=== PATIENT | female | born 1980 ===

== ENCOUNTER 2016-10-09 08:59 | Emergency (ER) | payer MEDICAID, OTHER ==
[2016-10-09 09:28] VITALS: BMI 32.8
[2016-10-09 09:30] VITALS: BP 124/79; PULSE 100; RESP 16; TEMP 99.5; O2SAT 99
--- NOTE | 2016-10-09 09:57 | ED PDOC ---
Arrival/HPI - General Chief Complaint: ENT Problem Time Seen by Provider: 10/09/16 09:54 Historian: Patient - History of Present Illness Narrative History of Present Illness (Text): 10/09/16 09:55 This 35 yo female presents to this ED c/o sore throat x 3 days. Patient stated it is painful to swallow. Patient noted subjective fever last night. Denies n/ v, sob, cp, wheezing, abdominal pain, or abnormal gait. Time/Duration: Other (3 days) Context: Home Past Medical History - Provider Review Nursing Documentation Reviewed: Yes - Psychiatric Hx Substance Use: No Family/Social History - Physician Review Nursing Documentation Reviewed: Yes Family/Social History: No Known Family HX Smoking Status: Never Smoked Hx Alcohol Use: No Hx Substance Use: No Allergies/Home Meds Allergies/Adverse Reactions: Allergies No Known Allergies Allergy (Verified 10/09/16 09:30) Review of Systems - Review of Systems Constitutional: Normal. absent: Fatigue, Weight Change, Fevers Eyes: Normal ENT: Sore Throat Respiratory: Normal. absent: SOB, Cough, Wheezing Cardiovascular: Normal. absent: Chest Pain Gastrointestinal: Normal. absent: Abdominal Pain, Constipation, Diarrhea, Nausea, Vomiting Genitourinary Female: Normal. absent: Dysuria, Frequency, Hematuria, Vaginal Bleeding Musculoskeletal: Normal. absent: Arthralgias, Back Pain, Neck Pain, Joint Swelling, Myalgias Skin: Normal Neurological: Normal. absent: Headache, Dizziness, Focal Weakness, Gait Changes , Speech Changes Endocrine: Normal Hemo/Lymphatic: Normal Psychiatric: Normal Physical Exam Vital Signs Temp Pulse Resp BP Pulse Ox 10/09/16 09:28 99.5 F 100 H 16 124/79 99 Temperature: Afebrile Blood Pressure: Normal Pulse: Regular Respiratory Rate: Normal Appearance: Positive for: Well-Appearing, Non-Toxic, Comfortable Pain Distress: None Mental Status: Positive for: Alert and Oriented X 3 - Systems Exam Head: Present: Atraumatic, Normocephalic Pupils: Present: PERRL Extroacular Muscles: Present: EOMI Conjunctiva: Present: Normal Mouth: Present: Moist Mucous Membranes Pharnyx: Present: ERYTHEMA, EXUDATE, TONSILS ENLARGED. No: Peritonsilar Swelling, Uvular Deviation, Muffled/Hoarse Voice, Strider, Soft Palate/Uvular Edema Nose (External): Present: Atraumatic Nose (Internal): Present: Normal Inspection Neck: Present: Normal Range of Motion, Lymphadenopathy. No: Meningeal Signs Respiratory/Chest: Present: Clear to Auscultation, Good Air Exchange. No: Respiratory Distress, Accessory Muscle Use, Wheezes, Decreased Breath Sounds, Rales, Retracting, Rhonchi Cardiovascular: Present: Regular Rate and Rhythm, Normal S1, S2. No: Murmurs Abdomen: Present: Normal Bowel Sounds. No: Tenderness, Distention, Peritoneal Signs Back: Present: Normal Inspection. No: CVA Tenderness Upper Extremity: Present: Normal Inspection. No: Cyanosis, Edema Lower Extremity: Present: Normal Inspection. No: Edema Neurological: Present: GCS=15, CN II-XII Intact, Speech Normal Skin: Present: Warm, Dry, Normal Color. No: Rashes Psychiatric: Present: Alert, Oriented x 3, Normal Insight, Normal Concentration Medical Decision Making ED Course and Treatment: 10/09/16 10:08 Re-evaluation. Patient feels better. Discussed results and plan with patient who expresses understanding. All questions answered and there is agreement with the plan to discharge home with instructions. Patient stable for discharge. Return if symptoms persist or worsen. Re-evaluation Time: 10:08 Reassessment Condition: Re-examined, Improved - Medication Orders Current Medication Orders: Discontinued Medications Amoxicillin/Clavulanate Potassium (Augmentin 875 Mg-125 Mg Tab) 1 tab PO STAT STA PRN Reason: Protocol Stop: 10/09/16 10:04 Last Admin: 10/09/16 10:26 Dose: 1 TAB Ketorolac Tromethamine (Toradol) 30 mg IM STAT STA Stop: 10/09/16 10:03 Last Admin: 10/09/16 10:30 Dose: 30 MG IM Administration Charges Document 10/09/16 10:30 SALAZAR (Rec: 10/09/16 10:30 SALAZAR [id number]) Injection Site MAR Injection Site Left Deltoid Charges for Administration # of IM Administrations 1 Prednisone (Prednisone Tab) 60 mg PO STAT ONE Stop: 10/09/16 10:04 Last Admin: 10/09/16 10:30 Dose: 60 MG Disposition/Present on Arrival - Present on Arrival Any Indicators Present on Arrival: No History of DVT/PE: No History of Uncontrolled Diabetes: No Urinary Catheter: No History of Decub. Ulcer: No History Surgical Site Infection Following: None - Disposition Have Diagnosis and Disposition been Completed?: Yes Diagnosis: Pharyngitis Disposition: HOME/ ROUTINE Disposition Time: 10:08 Patient Plan: Discharge Condition: GOOD Discharge Instructions (ExitCare): Pharyngitis (ED) Additional Instructions: Call private doctor for follow up visit in 1-2 days. Take medication as instructed. Return to emergency if symptoms worsen. Prescriptions: Amoxicillin/Clavulanate [Augmentin 875 MG-125 MG] 1 tab PO BID #20 tab Prednisone [Deltasone] 60 mg PO DAILY #12 tablet Promethazine/Codeine [Codeine/Promethazine 10 MG/5 Ml-6.25 MG/5 Ml] 5 ml PO Q4H PRN #120 ml PRN Reason: Cough Referrals: [facility] [Outside] - Follow up with primary Forms: WORK NOTE
[2016-10-09] MEDS ORDERED: Amoxicillin-Clav 875-125 mg Tab PO STA (10:03)
== END 2016-10-09 10:49 | disposition home or self-care (01) ==
LOC: ED 08:59
DX: J02.9 Acute pharyngitis, unspecified (principal)
CPT/HCPCS: 96372; 99282; J1885

== ENCOUNTER 2017-10-21 10:07 | Emergency (ER) | payer MEDICAID, OTHER ==
[2017-10-21 10:07] VITALS: BMI 32.8
[2017-10-21 10:41] VITALS: TEMP 98.7; O2SAT 100
--- NOTE | 2017-10-21 11:19 | ED PDOC ---
Arrival/HPI - General Chief Complaint: Breast Problem Time Seen by Provider: 10/21/17 11:08 Historian: Patient - History of Present Illness Narrative History of Present Illness (Text): 10/21/17 11:27 A 36 year old female, with no significant past medical history, presents to the emergency department complaining of right breast pain for 2 months. Patient reports today pain has become worse and notes also feeling a lump on breast. Patient denies any inflammation or any other complaints. No PMD Time/Duration: > month (2 months) Symptom Onset: Gradual Symptom Course: Worsening Past Medical History - Provider Review Nursing Documentation Reviewed: Yes - Psychiatric Hx Psychophysiologic Disorder: No Hx Substance Use: No Family/Social History - Physician Review Nursing Documentation Reviewed: Yes Family/Social History: No Known Family HX Smoking Status: Never Smoked Hx Alcohol Use: No Hx Substance Use: No Allergies/Home Meds Allergies/Adverse Reactions: Allergies No Known Allergies Allergy (Verified 10/21/17 10:21) Review of Systems - Physician Review All systems were reviewed & negative as marked: Yes - Review of Systems Musculoskeletal: Other (right breast pain) Skin: absent: Other (no inflammation to breast) Physical Exam Vital Signs Reviewed: Yes Vital Signs Temp Pulse Resp BP Pulse Ox 10/21/17 10:22 98.7 F 61 16 111/79 100 Temperature: Afebrile Blood Pressure: Normal Pulse: Irregular Respiratory Rate: Normal Appearance: Positive for: Well-Appearing Pain Distress: None Mental Status: Positive for: Alert and Oriented X 3 - Systems Exam Respiratory/Chest: Present: Clear to Auscultation, Good Air Exchange. No: Respiratory Distress, Accessory Muscle Use Cardiovascular: Present: Irregular Rhythm Abdomen: No: Tenderness, Distention, Peritoneal Signs Breast/Axillary: Present: Masses (palpable mass (2 cm in diameter size at 1 o' clock area) 6 cm away from nipple, feel indurated, well dircumsized, no flutuation), Symmetrical. No: Erythema Neurological: Present: GCS=15, CN II-XII Intact, Speech Normal Skin: Present: Warm, Dry, Normal Color. No: Rashes Psychiatric: Present: Alert, Oriented x 3, Normal Insight, Normal Concentration Medical Decision Making ED Course and Treatment: 10/21/17 11:30 Impression: 36 year old female with right breast pain and palpable mass. Physical exam shows 2 cm palpable mass (6 cm away from nipple area) located in 1 o'clock area of breast. Differential Diagnosis included but are not limited to: Cyst vs. Abscess Plan: -- Referral to TEACHER LEARNING DISABLED -- Reassess and disposition Progress Notes: 10/21/17 11:33 Discharge papers handed to nurse. - Scribe Statement The provider has reviewed the documentation as recorded by the Yrnibjosé miguel Rodriguez Provider Scribe Attestation: All medical record entries made by the Scribe were at my direction and personally dictated by me. I have reviewed the chart and agree that the record accurately reflects my personal performance of the history, physical exam, medical decision making, and the department course for this patient. I have also personally directed, reviewed, and agree with the discharge instructions and disposition. Disposition/Present on Arrival - Present on Arrival Any Indicators Present on Arrival: No History of DVT/PE: No History of Uncontrolled Diabetes: No Urinary Catheter: No History of Decub. Ulcer: No History Surgical Site Infection Following: None - Disposition Have Diagnosis and Disposition been Completed?: Yes Diagnosis: Breast mass, right Disposition: HOME/ ROUTINE Disposition Time: 11:16 Patient Plan: Discharge Patient Problems: Current Active Problems Problem Status Onset Breast mass, right Acute Condition: FAIR Discharge Instructions (ExitCare): Common Breast Problems Print Language: IRISH Additional Instructions: Pt referred to Dr Garner for f/u of R breast mass-Cyst vs abscess Prescriptions: Naproxen [Naprosyn] 500 mg PO BID #20 tablet Referrals: Roderick Garner MD [Staff Provider] - Follow up with primary PCP,NO [Primary Care Provider] - Follow up with primary Forms: RFEyeD (Setswana)
[2017-10-21 11:47] VITALS: BP 112/81; PULSE 65; RESP 17
== END 2017-10-21 15:00 | disposition home or self-care (01) ==
LOC: ED 10:07
DX: N63.10 Unspecified lump in the right breast, unspecified quadrant (principal)

== ENCOUNTER 2017-12-22 22:27 | Emergency (ER) | payer SELFPAY ==
[2017-12-22 22:28] VITALS: BMI 32.8
[2017-12-22 23:06] VITALS: RESP 17
[2017-12-23] LABS: PH,URINE 6.5 (4.7-8.0); URINE BILIRUBIN NEGATIVE (NEGATIVE); URINE BLOOD SMALL (NEGATIVE); URINE GLUCOSE (UA) NEGATIVE (NEGATIVE); URINE LEUKOCYTE ESTERASE SMALL Leu/uL (NEGATIVE); URINE PROTEIN TRACE mg/dL (<30 mg/dL); URINE UROBILINOGEN 0.2 E.U./dL (<1 E.U./dL)
[2017-12-23 00:07] LABS: URINE APPEARANCE SL CLOUDY (CLEAR); URINE COLOR YELLOW (YELLOW)
[2017-12-23 00:19] LABS: URINE BACTERIA SMALL (NEG)
--- NOTE | 2017-12-23 00:48 | ED PDOC ---
Arrival/HPI - General Historian: Patient - History of Present Illness Time/Duration: Other (4 days) Symptom Onset: Gradual Symptom Course: Worsening Activities at Onset: Light Context: Home - General Chief Complaint: Dizziness/Lightheaded Time Seen by Provider: 12/22/17 23:01 - History of Present Illness Narrative History of Present Illness (Text): 12/23/17 00:54 37 year old female, with no significant past medical history and no known allergies, presents to the Emergency department complaining of worsening epigatric pain the radiates to the back associated with a fever and headache that began 4 days ago. Patient decided to come in for evaluation today. Patient denies any chills, chest pain, shortness of breath, nausea, vomiting, diarrhea, neck pain, urinary symptoms, dizziness, or any other complaint. (aMlvin Sotelo) Past Medical History - Provider Review Nursing Documentation Reviewed: Yes - Infectious Disease Hx of Infectious Diseases: None - Psychiatric Hx Psychophysiologic Disorder: No Hx Substance Use: No Family/Social History - Physician Review Nursing Documentation Reviewed: Yes Family/Social History: No Known Family HX Smoking Status: Never Smoked Hx Alcohol Use: No Hx Substance Use: No Allergies/Home Meds Allergies/Adverse Reactions: Allergies No Known Allergies Allergy (Verified 12/22/17 23:09) Home Medications: Home Meds Medication Instructions Recorded Confirmed No Known Home Med 12/22/17 12/22/17 Review of Systems - Physician Review All systems were reviewed & negative as marked: Yes - Review of Systems Constitutional: Fevers. absent: Other (Chills) Respiratory: absent: SOB Cardiovascular: absent: Chest Pain Gastrointestinal: Abdominal Pain. absent: Diarrhea, Nausea, Vomiting Genitourinary Female: absent: Dysuria, Frequency, Hematuria Musculoskeletal: Back Pain. absent: Neck Pain Neurological: Headache. absent: Dizziness Physical Exam Vital Signs Reviewed: Yes Temperature: Febrile Blood Pressure: Normal Pulse: Tachycardic Respiratory Rate: Normal Appearance: Positive for: Well-Appearing, Non-Toxic, Comfortable Pain Distress: None Mental Status: Positive for: Alert and Oriented X 3 - Systems Exam Head: Present: Atraumatic, Normocephalic Pupils: Present: PERRL Extroacular Muscles: Present: EOMI Conjunctiva: Present: Normal Mouth: Present: Moist Mucous Membranes Neck: Present: Normal Range of Motion Respiratory/Chest: Present: Clear to Auscultation, Good Air Exchange. No: Respiratory Distress, Accessory Muscle Use Cardiovascular: Present: Regular Rate and Rhythm, Normal S1, S2. No: Murmurs Abdomen: Present: Tenderness (To the midline epigastric area). No: Distention, Peritoneal Signs Back: Present: Normal Inspection Upper Extremity: Present: Normal Inspection. No: Cyanosis, Edema Lower Extremity: Present: Normal Inspection. No: Edema Neurological: Present: GCS=15, CN II-XII Intact, Speech Normal Skin: Present: Warm, Dry, Normal Color. No: Rashes Psychiatric: Present: Alert, Oriented x 3, Normal Insight, Normal Concentration Vital Signs Temp Pulse Resp BP Pulse Ox 12/23/17 05:17 98.2 F 82 17 110/78 98 12/23/17 03:33 69 17 109/66 98 12/23/17 00:51 100.7 F H 12/22/17 23:05 100.7 F H 105 H 17 131/81 96 Medical Decision Making - Lab Interpretations I have reviewed the lab results: Yes ED Course and Treatment: 12/23/17 00:49 Impression: 37 year old female presents complaining of epigastric abdominal pain that radiates to the back associated with fever and headache that began 4 days ago. PE shows tenderness to the midline epigastric area. Plan: -- CT Abd & Pelvis PO & IV Contrast -- Labs -- Pepcid, Protonix Inj, Tylenol -- Urine Culture -- Urine Preg. Test -- HCG, Qualit Urine. -- Urinalysis w/ micro -- Reassess and disposition Prior Visits: Notes and results from previous visits were reviewed. Progress Notes: EXAM: CT Abdomen and Pelvis With Intravenous Contrast Dictated and Authenticated by: Gallito Chow MD 12/23/2017 4:59 AM IMPRESSION: 1. Left adnexal 4.5 x 3.1 cm cyst. 2. Tubular fluid filled structure in the right adnexal region likely 12/23/17 05:00 On re-evaluation, patient feels better and is in no acute distress. I have discussed the results and plan with the patient, who expresses understanding. Patient in agreement with plan to be discharged home. Patient is stable for discharge. Patient was instructed to follow up with physician or return if symptoms worsen or new concerning symptoms arise. (Malvin Sotelo) - Lab Interpretations Microbiology Results: Microbiology Results 12/22/17 23:45 Urine,Clean Catch Urine Culture - Final Escherichia Coli Lab Results: 12/23/17 01:16 12/23/17 01:16 Lab Results 12/23/17 01:16: Sodium 137, Potassium 3.9, Chloride 102, Carbon Dioxide 25, Anion Gap 14, BUN 10, Creatinine 0.6 L, Est GFR ( Amer) > 60, Est GFR ( Non-Af Amer) > 60, Random Glucose 98, Calcium 8.5, Total Bilirubin 0.2, AST 23, ALT 32, Alkaline Phosphatase 73, Total Protein 7.1, Albumin 3.6, Globulin 3.4, Albumin/Globulin Ratio 1.1, Lipase 93 12/23/17 01:16: PT 13.5 H, INR 1.18 H 12/23/17 01:16: WBC 6.0, RBC 3.84, Hgb 12.0, Hct 34.9 L, MCV 90.9, MCH 31.3, MCHC 34.4, RDW 12.4, Plt Count 302, MPV 9.9, Gran % 42.5 L, Lymph % (Auto) 44.3 H, [place] % (Auto) 11.9 H, Eos % (Auto) 0.8 L, Baso % (Auto) 0.5, Gran # 2.56, Lymph # (Auto) 2.7, [place] # (Auto) 0.7 H, Eos # (Auto) 0.1, Baso # (Auto) 0.03 12/22/17 23:45: Urine HCG, Qual Negative 12/22/17 23:45: Urine Color Yellow, Urine Appearance Sl cloudy, Urine pH 6.5, Ur Specific [place] 1.010, Urine Protein Trace H, Urine Glucose (UA) Negative, Urine Ketones Negative, Urine Blood Small H, Urine Nitrate Negative, Urine Bilirubin Negative, Urine Urobilinogen 0.2, Ur Leukocyte Esterase Small H, Urine RBC 1 - 3, Urine WBC 2 - 5, Ur Epithelial Cells 4 - 5, Urine Bacteria Small - RAD Interpretation Radiology Orders: 12/23/17 00:58 ABD PELVIS PO & IV CONTRAST [CT] Stat - Medication Orders Current Medication Orders: Discontinued Medications Acetaminophen (Tylenol 325mg Tab) 975 mg PO STAT STA Stop: 12/23/17 00:33 Last Admin: 12/23/17 00:51 Dose: 975 mg MAR Pain/Vitals Document 12/23/17 00:51 IT (Rec: 12/23/17 00:51 IT [id number]) Pain Reassessment Is This A Pain ReAssessment? No Sleep Is patient sleeping during reassessment? No Presence of Pain Presence of Pain Yes Pain Scale Used Pain Scale Used Numeric Location Left, Right or Bilateral Bilateral Pain Location Body Knife Setter Description Constant Vitals Temperature (97.6 F-99.6 F) 100.7 F Famotidine (Pepcid) 40 mg PO STAT STA Stop: 12/23/17 01:02 Last Admin: 12/23/17 01:27 Dose: 40 mg Pantoprazole Sodium (Protonix Inj) 40 mg IVP STAT STA Stop: 12/23/17 01:05 Last Admin: 12/23/17 01:27 Dose: 40 mg IVP Administration Document 12/23/17 01:27 IT (Rec: 12/23/17 01:27 IT [id number]) Charges for Administration # of IVP Administrations 1 - Scribe Statement The provider has reviewed the documentation as recorded by the Scribe - Scribe Statement Moustapha Hong Provider Scribe Attestation: All medical record entries made by the Scribe were at my direction and personally dictated by me. I have reviewed the chart and agree that the record accurately reflects my personal performance of the history, physical exam, medical decision making, and the department course for this patient. I have also personally directed, reviewed, and agree with the discharge instructions and disposition. (Malvin Sotelo) Disposition/Present on Arrival - Present on Arrival Any Indicators Present on Arrival: No History of DVT/PE: No History of Uncontrolled Diabetes: No Urinary Catheter: No History of Decub. Ulcer: No History Surgical Site Infection Following: None - Disposition Have Diagnosis and Disposition been Completed?: Yes Disposition Time: 05:04 Patient Plan: Discharge - Disposition Diagnosis: Epigastric pain, Hydrosalpinx, Ovarian cyst Disposition: HOME/ ROUTINE Condition: GOOD Discharge Instructions (ExitCare): Acute Abdomen (Belly Pain), Adult (DC), Ovarian Cyst (DC) Additional Instructions: Swetha - You have an ovarian cyst and you need to follow up with a shaker washer. If you do not already have one, please call Dr. Galdamez at [phone] for follow up . You also need to follow up with a fire watchman about your stomach pain. Please call Dr. Sánchez at [phone] for follow up. Take tylenol and or motrin for pain as needed. Eat a very bland diet. Return to us if any problems. Best- Dr. Malvin Sotelo Forms: [facility] (Lux[place]ish), SCHOOL NOTE, WORK NOTE Addendum Addendum: 12/25/17 14:50 I spoke with patient regarding urine Cx.result. She asked me to call [facility]. i spoke with pharmacist and gave him a verbal order for Bactrim DS BID x 7 days. Patient will picking belt operator in 1 hour. (Roman Heard)
[2017-12-23] MEDS ORDERED: Iohexol 240 (50 ml) ONE (01:06)
[2017-12-23 01:44] LABS: BASO # 0.03 K/mm3 (0.0-2.0); BASO % 0.5 % (0.0-3.0); EOS # 0.1 (0.0-0.7); EOS % 0.8 % (1.5-5.0); GRAN # 2.56 (1.4-6.5); GRAN % 42.5 % (50.0-68.0); LYMPH # 2.7 (1.2-3.4); LYMPH % 44.3 % (22.0-35.0); MEAN CELL VOLUME 90.9 fl (80.0-105.0); MEAN CORPUSCULAR HEMOGLOBIN 31.3 pg (25.0-35.0); MEAN CORPUSCULAR HGB CONC 34.4 g/dl (31.0-37.0); MEAN PLATELET VOLUME 9.9 fl (7.0-11.0); MONO # 0.7 (0.1-0.6); MONO % 11.9 % (1.0-6.0); RBC 3.84 10^6/uL (3.5-6.1); RED CELL DISTRIBUTION WIDTH 12.4 % (11.5-14.5)
[2017-12-23 01:52] LABS: ALB/GLOB RATIO 1.1 (1.1-1.8); ALBUMIN 3.6 g/dL (3.0-4.8); ALT/SGPT 32 U/L (7-56); AST/SGOT 23 U/L (14-36); BLOOD UREA NITROGEN 10 mg/dL (7-21); CALCIUM 8.5 mg/dL (8.4-10.5); GFR AFRICAN-AMERICAN > 60; GFR NON-AFRICAN AMERICAN > 60; LIPASE 93 U/L (23-300)
[2017-12-23 02:06] LABS: INR 1.18 (0.93-1.08); PROTHROMBIN TIME 13.5 SECONDS (9.4-12.5)
[2017-12-23] MEDS ORDERED: Iohexol 350 MG/100 ML VIAL ONE (02:33)
[2017-12-23 03:34] VITALS: O2SAT 98
[2017-12-23 05:18] VITALS: BP 110/78; PULSE 82; TEMP 98.2
--- NOTE | 2017-12-23 08:46 | CT ---
PROCEDURE: CT Abdomen and Pelvis with contrast HISTORY: Epigastric Pain Nausea and Fever. COMPARISON: None. TECHNIQUE: Contrast dose: 100 cc of Omni 350 Radiation dose: Total exam DLP = 1181 mGy-cm. This CT exam was performed using one or more of the following dose reduction techniques: Automated exposure control, adjustment of the mA and/or kV according to patient size, and/or use of iterative reconstruction technique. FINDINGS: LOWER THORAX: Unremarkable. LIVER: Unremarkable. No gross lesion or ductal dilatation. GALLBLADDER AND BILE DUCTS: Unremarkable. PANCREAS: Unremarkable. No gross lesion or ductal dilatation. SPLEEN: Unremarkable. ADRENALS: Unremarkable. No mass. KIDNEYS AND URETERS: Unremarkable. No hydronephrosis. No solid mass. VASCULATURE: Unremarkable. No aortic aneurysm. BOWEL: Unremarkable. No obstruction. No gross mural thickening. APPENDIX: Normal appendix. PERITONEUM: Unremarkable. No free fluid. No free air. LYMPH NODES: Unremarkable. No enlarged lymph nodes. BLADDER: Unremarkable. REPRODUCTIVE: There is a left adnexal cyst measuring 3 x 4.5 cm. There is a fluid-filled tubular structure in the right adnexal region most likely representing hydrosalpinx. BONES: No acute fracture. OTHER FINDINGS: Multiple subcutaneous nodules are seen which are most likely injection granulomas. The report concurs with the preliminary [facility] report IMPRESSION: There is a left adnexal cyst measuring 3 x 4.5 cm. There is a fluid-filled tubular structure in the right adnexal region most likely representing hydrosalpinx.
== END 2017-12-23 05:18 | disposition home or self-care (01) ==
LOC: ED 22:27
DX: R10.13 Epigastric pain (principal); N70.11 Chronic salpingitis; N83.209 Unspecified ovarian cyst, unspecified side
CPT/HCPCS: 74177; 80053; 81001; 81025; 83690; 84703; 85025; 85610; 87086; 96374; 99285; C9113; Q9966; Q9967

== ENCOUNTER 2018-01-22 10:53 | Emergency (ER) | payer SELFPAY ==
[2018-01-22 10:53] VITALS: BMI 32.8
[2018-01-22 11:31] VITALS: RESP 18; TEMP 98.6; O2SAT 99
--- NOTE | 2018-01-22 11:38 | ED PDOC ---
Arrival/HPI - General Chief Complaint: Female Genitourinary Time Seen by Provider: 01/22/18 11:36 Historian: Patient - History of Present Illness Narrative History of Present Illness (Text): 01/22/18 12:10 37 year old female, with no significant PMH, who presents to the emergency department complaining of severe vaginal bleeding since one day ago. Patient reports her last menstrual cycle was 5 days ago but began to bleed one day ago with big clots. Patient also complaints of lower left abdominal pain associated with feeling dizziness and lightheadedness. Patient denies dysuria, fever, shortness of breath, chest pain, nausea, vomiting, diarrhea, headache, or other complaints. Time/Duration: 24 hours Symptom Onset: Sudden Symptom Course: Unchanged Severity Level: Severe Context: Home Past Medical History - Provider Review Nursing Documentation Reviewed: Yes - Infectious Disease Hx of Infectious Diseases: None - Reproductive Menopause: No - Cardiac Hx Cardiac Disorders: No - Pulmonary Hx Respiratory Disorders: No - Musculoskeletal/Rheumatological Hx Musculoskeletal Disorders: No - Psychiatric Hx Psychophysiologic Disorder: No Hx Substance Use: No - Anesthesia Hx Anesthesia: No Family/Social History - Physician Review Nursing Documentation Reviewed: Yes Family/Social History: Unknown Family HX Smoking Status: Never Smoked Hx Alcohol Use: No Hx Substance Use: No Allergies/Home Meds Allergies/Adverse Reactions: Allergies No Known Allergies Allergy (Verified 12/22/17 23:09) Home Medications: Home Meds Medication Instructions Recorded Confirmed No Known Home Med 12/22/17 12/22/17 Review of Systems - Physician Review All systems were reviewed & negative as marked: Yes - Review of Systems Respiratory: absent: SOB Cardiovascular: absent: Chest Pain Gastrointestinal: Abdominal Pain (left lower abdominal pain ) Genitourinary Female: Vaginal Bleeding Neurological: Dizziness (lightheadedness) Physical Exam - Physical Exam Narrative Physical Exam (Text): 01/22/18 Gen: VS reviewed, alert, well developed, well nourished, nontoxic, mild distress. ENT: normal pharynx. Eye: EOMI, PERRL. Neck: no JVD, supple, no adenopathy. CV: regular rate, regular rhythm, no rubs, no murmur, no gallops, S1, S2, pulses equal and strong. Pulm: no distress, clear to auscultation, no wheeze, no rhonchi, breath sounds equal, no rales. Abd: (+) mild lower left pelvic tenderness. no guarding, no rebound, no rigidity , normal bowel sounds. Ext: no edema. Skin: good color, no rash, no cyanosis. Psych: responds appropriately to questions, normal affect. Neuro: oriented x 3, CN2-12 intact grossly, motor intact, sensation intact. Vital Signs Reviewed: Yes Vital Signs Temp Pulse Resp BP Pulse Ox 01/22/18 11:26 98.6 F 92 H 18 112/80 99 Temperature: Afebrile Blood Pressure: Normal Pulse: Tachycardic Respiratory Rate: Normal Appearance: Positive for: Well-Appearing, Non-Toxic, Comfortable Pain Distress: None Mental Status: Positive for: Alert and Oriented X 3 Medical Decision Making ED Course and Treatment: 01/22/18 Impression: 37 year old female with lower left pelvic mild tenderness complaining of severe vaginal bleeding and lightheadedness. Plan: -- Transvaginal Ultrasound -- Urinalysis -- Labs -- Reassess and disposition Progress Notes: 01/22/18 13:30 Transvaginal Ultrasound: Creator : Stephanie Marques MD FINDINGS: UTERUS: Measures 8.2 x 4.7 x 6.9 cm. Anteverted and enlarged. There is a 2.7 x 2.2 x 1.9 cm intramural posterior wall fibroid in the midbody of the uterus. ENDOMETRIUM: Measures 11 mm in diameter. Normal in appearance. CERVIX: No cervical abnormality identified. RIGHT OVARY: Measures 3.1 x 2.1 x 2.3 cm. No solid mass. Normal flow. There is a 2.5 x 2.5 x 1.5 cm complicated cyst. LEFT OVARY: Not visualized. FREE FLUID: No significant free fluid noted. OTHER FINDINGS: None. IMPRESSION: 2.7 cm posterior wall intramural fibroid in the midbody of the uterus. 2.5 cm complicated cyst in the right ovary. The left ovary is not visualized. Normal appearance of the central endometrial echo complex. 01/22/18 14:33 patient reports that she is still bleeding but has refused pelvic exam. patient has requested medication to "stop the bleeding" but i informed the patient that management for abnormal bleeding is by the seed tester. - Lab Interpretations Lab Results: 01/22/18 13:30 01/22/18 13:30 Lab Results 01/22/18 13:30: Sodium 141, Potassium 4.0, Chloride 102, Carbon Dioxide 29, Anion Gap 14, BUN 8, Creatinine 0.6 L, Est GFR ( Amer) > 60, Est GFR (Non -Af Amer) > 60, Random Glucose 89, Calcium 9.1, Total Bilirubin 0.4, AST 31, ALT 27, Alkaline Phosphatase 77, Total Protein 7.6, Albumin 4.3, Globulin 3.3, Albumin/Globulin Ratio 1.3 01/22/18 13:30: PT 12.5, INR 1.09 H, APTT 31.6 01/22/18 13:30: WBC 5.8, RBC 4.41, Hgb 13.9, Hct 40.2, MCV 91.2, MCH 31.5, MCHC 34.6, RDW 12.9, Plt Count 350, MPV 10.1, Gran % 28.5 L, Lymph % (Auto) 58.7 H, [place] % (Auto) 10.4 H, Eos % (Auto) 1.4 L, Baso % (Auto) 1.0, Gran # 1.64, Lymph # (Auto) 3.4, [place] # (Auto) 0.6, Eos # (Auto) 0.1, Baso # (Auto) 0.06 I have reviewed the lab results: Yes - RAD Interpretation Radiology Orders: 01/22/18 12:12 TRANSVAGINAL [US] Stat Air Bag Buffer: Radiologist - Scribe Statement The provider has reviewed the documentation as recorded by the Jeovany Leigh Provider Scribe Attestation: All medical record entries made by the Jeovany were at my direction and personally dictated by me. I have reviewed the chart and agree that the record accurately reflects my personal performance of the history, physical exam, medical decision making, and the department course for this patient. I have also personally directed, reviewed, and agree with the discharge instructions and disposition. Disposition/Present on Arrival - Present on Arrival Any Indicators Present on Arrival: No History of DVT/PE: No History of Uncontrolled Diabetes: No Urinary Catheter: No History of Decub. Ulcer: No History Surgical Site Infection Following: None - Disposition Have Diagnosis and Disposition been Completed?: Yes Diagnosis: Dysfunctional uterine bleeding Disposition: HOME/ ROUTINE Disposition Time: 14:35 Patient Plan: Discharge Condition: GOOD Print Language: IRISH Additional Instructions: return for any problems or concerns. follow up with your seed tester as soon as possible. Referrals: Roderick Garner MD [Staff Provider] - Follow up with primary Forms: [employer] (Tuvaluan), WORK NOTE
--- NOTE | 2018-01-22 13:27 | US ---
Date of service: 01/22/2018 HISTORY: excessive vaginal bleeding COMPARISON: None available. TECHNIQUE: Transvaginal pelvic ultrasound was performed. FINDINGS: UTERUS: Measures 8.2 x 4.7 x 6.9 cm. Anteverted and enlarged. There is a 2.7 x 2.2 x 1.9 cm intramural posterior wall fibroid in the midbody of the uterus. ENDOMETRIUM: Measures 11 mm in diameter. Normal in appearance. CERVIX: No cervical abnormality identified. RIGHT OVARY: Measures 3.1 x 2.1 x 2.3 cm. No solid mass. Normal flow. There is a 2.5 x 2.5 x 1.5 cm complicated cyst. LEFT OVARY: Not visualized. FREE FLUID: No significant free fluid noted. OTHER FINDINGS: None. IMPRESSION: 2.7 cm posterior wall intramural fibroid in the midbody of the uterus. 2.5 cm complicated cyst in the right ovary. The left ovary is not visualized. Normal appearance of the central endometrial echo complex.
[2018-01-22 13:39] LABS: BASO # 0.06 K/mm3 (0.0-2.0); EOS # 0.1 (0.0-0.7); EOS % 1.4 % (1.5-5.0); GRAN # 1.64 (1.4-6.5); GRAN % 28.5 % (50.0-68.0); HEMOGLOBIN 13.9 g/dL (12.0-16.0); LYMPH # 3.4 (1.2-3.4); LYMPH % 58.7 % (22.0-35.0); MEAN CELL VOLUME 91.2 fl (80.0-105.0); MEAN CORPUSCULAR HEMOGLOBIN 31.5 pg (25.0-35.0); MEAN CORPUSCULAR HGB CONC 34.6 g/dl (31.0-37.0); MEAN PLATELET VOLUME 10.1 fl (7.0-11.0); MONO # 0.6 (0.1-0.6); MONO % 10.4 % (1.0-6.0); RBC 4.41 10^6/uL (3.5-6.1); RED CELL DISTRIBUTION WIDTH 12.9 % (11.5-14.5); WHITE BLOOD COUNT 5.8 10^3/ul (4.5-11.0)
[2018-01-22 13:45] LABS: INR 1.09 (0.93-1.08); PARTIAL THROMBOPLASTIN TIME 31.6 Seconds (25.1-36.5); PROTHROMBIN TIME 12.5 SECONDS (9.4-12.5)
[2018-01-22 13:48] LABS: ALB/GLOB RATIO 1.3 (1.1-1.8); ALBUMIN 4.3 g/dL (3.0-4.8); ALT/SGPT 27 U/L (7-56); AST/SGOT 31 U/L (14-36); BLOOD UREA NITROGEN 8 mg/dL (7-21); CALCIUM 9.1 mg/dL (8.4-10.5); GFR AFRICAN-AMERICAN > 60; GFR NON-AFRICAN AMERICAN > 60
[2018-01-22 14:49] VITALS: BP 115/75; PULSE 86
== END 2018-01-22 14:46 | disposition home or self-care (01) ==
LOC: ED 10:53
DX: N93.8 Other specified abnormal uterine and vaginal bleeding (principal)

== ENCOUNTER 2018-08-06 08:27 | Outpatient (CLI) | payer SELFPAY | END 2018-08-06 08:28 | disposition home or self-care (01) | LOC: LAB 08:27 ==

== ENCOUNTER 2018-09-15 09:10 | Outpatient (CLI) | payer OTHER | END 2018-09-15 09:11 | disposition home or self-care (01) | LOC: RAD 09:10 | DX: N63.12 Unspecified lump in the right breast, upper inner quadrant (principal) ==

== ENCOUNTER 2018-09-21 09:48 | Outpatient (CLI) | payer OTHER | END 2018-09-21 09:49 | disposition home or self-care (01) | LOC: RAD 09:48 ==